=== PATIENT | female | born 2000 | race Caucasian/White ===

== ENCOUNTER 2022-05-03 12:51 | Day surgery (SDC) | payer BC ==
[2022-05-02 14:23] VITALS: BMI 34.9
[2022-05-03] MEDS ORDERED: ONDANSETRON 4 MG/2 ML VIAL IVPUSH PRN (14:26)
[2022-05-03] MEDS ORDERED: oxyCODONE HCL 5 MG TABLET PO PRN (14:26)
[2022-05-03] MEDS ORDERED: LACTATED RINGERS SOLUTION 1,000 ML IV SCH (14:30)
[2022-05-03] MEDS ORDERED: FENTANYL CITRATE/PF 50 MCG/ML VIAL ONE (15:17)
[2022-05-03] MEDS ORDERED: ROPIVACAINE HCL/PF 100 MG/20 ML VIAL ONE (15:18)
[2022-05-03] MEDS ORDERED: MIDAZOLAM HCL 2 MG/2 ML SINGLE DOSE VIAL ONE (15:18)
[2022-05-03] MEDS ORDERED: LIDOCAINE 1% P/F 10 MG/ML VIAL ONE (15:18)
[2022-05-03] MEDS ORDERED: PROPOFOL 20 ML ONE (15:26)
[2022-05-03 17:56] VITALS: PULSE 82; RESP 16
[2022-05-03 18:34] VITALS: BP 118/69; TEMP 97.2
== END 2022-05-03 18:20 | disposition home or self-care (01) ==
LOC: FASU 12:51
PROVIDERS: ATTEND Orthopaedic Surgery Sports Medicine
PROC: 0SSG0ZZ Reposition Left Ankle Joint, Open Approach (ICD-10-PCS; principal; 2022-05-03 16:06)
DX: S93.432A Sprain of tibiofibular ligament of left ankle, initial encounter (principal); X58.XXXA Exposure to other specified factors, initial encounter; Y93.9 Activity, unspecified; Y92.9 Unspecified place or not applicable
CPT/HCPCS: 27829; C1713; 73610-TC-LT-FY; 84703; 94760